=== PATIENT | female | born 1975 | race Caucasian/White ===

== ENCOUNTER 2020-07-08 15:30 | Emergency (ER) | payer SELFPAY ==
[~2020-07-08] VITALS: Ht 177.8 cm; Wt 93.9 kg
[2020-07-08] MEDS ORDERED: IBUPROFEN 600 MG TAB PO ONE (17:00)
[2020-07-08 17:07] VITALS: BP 107/69
== END 2020-07-08 17:37 | disposition home or self-care (01) ==
LOC: ER 15:30
DX: S82.52XA Displaced fracture of medial malleolus of left tibia, initial encounter for closed fracture (principal); S82.62XA Displaced fracture of lateral malleolus of left fibula, initial encounter for closed fracture; X50.1XXA Overexertion from prolonged static or awkward postures, initial encounter; Y93.89 Activity, other specified; Y92.89 Other specified places as the place of occurrence of the external cause; Y99.8 Other external cause status
CPT/HCPCS: 29515; 73610; 73630

== ENCOUNTER 2020-09-10 15:23 | Inpatient (IN) | payer MEDICAID, OTHER ==
[~2020-09-10] VITALS: Ht 177.8 cm; Wt 93.6 kg
[2020-09-10] MEDS ORDERED: DexAMETHasone SOD PHOS 10MG/1ML VIAL INJ IV ONE (15:45)
[2020-09-10] MEDS ORDERED: cefTRIAXone 1GM/50ML D5W 50 ML IV ONE (15:45)
[2020-09-10] MEDS ORDERED: MORPHINE SULF INJ 2 MG/ML SYRINGE 1ML IV PRN ×3 (18:00→22:30)
[2020-09-10] MEDS ORDERED: NITROGLYCERIN 0.4 MG SL TAB SL PRN ×2 (18:00→22:30)
[2020-09-10 18:32] LABS: Basophils # (auto) 0 10 ^3/uL (0-0.2); Basophils % (auto) 0.2 % (0.0-2.0); Eosinophils # (auto) 0 10 ^3/uL (0-0.8); Eosinophils % (auto) 0.1 % (0.0-7.0); Hematocrit 37.6 % (36.0-46.0); Hemoglobin 12.8 g/dL (12.2-16.2); Lymphocytes # (auto) 1.5 10 ^3/uL (0.4-5.4); Lymphocytes % (auto) 16.9 % (10.0-50.0); Mean Corpuscular Hgb Conc. 34.1 g/dL (32.0-36.0); Mean Corpuscular Volume 85.2 fL (80.0-100.0); Monocytes # (auto) 0.6 10 ^3/uL (0-1.3); Monocytes % (auto) 6.7 % (0.0-12.0); Neutrophils # (auto) 6.7 10 ^3/uL (1.6-8.6); Neutrophils % (auto) 76.1 % (37.0-80.0); Platelet Count (auto) 226 10^3/uL (140-450); Red Blood Cells 4.41 10^6/uL (4.0-5.20); Red Cell Distribution Width 13.9 % (11.8-14.3); White Blood Cell 8.8 10^3/uL (4.4-10.8)
[2020-09-10 18:51] LABS: Albumin 3.6 g/dL (3.4-5.0); Calcium 8.5 mg/dL (8.5-10.1)
[2020-09-10 18:53] LABS: INR 1.04 (0.9-1.15); Partial Thromboplastin Time 26.9 sec (23.0-31.2)
[2020-09-10 18:56] LABS: BUN/Creatinine Ratio 10.5; Bilirubin, Total 0.3 mg/dL (0.2-1.0); CRP High Sensitivity 0.59 mg/dL (< 0.3); Total Protein 7.8 g/dL (6.4-8.2)
[2020-09-10] MEDS ORDERED: ENOXAPARIN SOD 100 MG/1 ML SYRINGE SC ONE (19:45)
[2020-09-10] MEDS ORDERED: IOHEXOL 350 MG/ML 100ML IJ ONE (21:19)
[2020-09-10] MEDS ORDERED: ONDANSETRON HCL 4 MG/2 ML VIAL IV PRN (22:30)
[2020-09-10] MEDS ORDERED: LORazepam 0.5 MG TAB PO PRN (22:30)
[2020-09-10] MEDS ORDERED: METOPROLOL SUCCINATE XL 50 MG TAB PO ONE (22:30)
[2020-09-10] MEDS ORDERED: HYDROcodone-ACET 5/325MG TAB PO PRN (22:30)
[2020-09-10] MEDS ORDERED: DOCUSATE SOD 100 MG CAP PO PRN (22:30)
[2020-09-10] MEDS ORDERED: ALUM & MAG HYDROX-SIMETH LIQ(MAALOX) 30 ML PO PRN (22:30)
[2020-09-11 02:04] LABS: Cholesterol 205 mg/dL (< 200); HDL Cholesterol 58 mg/dL (40-59); LDL Cholesterol 122 mg/dL (< 100); Triglycerides 80 mg/dL (< 150)
[2020-09-11 06:07] LABS: Basophils # (auto) 0 10 ^3/uL (0-0.2); Basophils % (auto) 0.4 % (0.0-2.0); Eosinophils # (auto) 0 10 ^3/uL (0-0.8); Hematocrit 38.1 % (36.0-46.0); Hemoglobin 13.1 g/dL (12.2-16.2); Lymphocytes # (auto) 1.3 10 ^3/uL (0.4-5.4); Lymphocytes % (auto) 13.8 % (10.0-50.0); Mean Corpuscular Hemoglobin 29.2 pg (28.0-32.0); Mean Corpuscular Hgb Conc. 34.4 g/dL (32.0-36.0); Monocytes # (auto) 0.5 10 ^3/uL (0-1.3); Monocytes % (auto) 5.1 % (0.0-12.0); Neutrophils # (auto) 7.5 10 ^3/uL (1.6-8.6); Neutrophils % (auto) 80.7 % (37.0-80.0); Platelet Count (auto) 216 10^3/uL (140-450); Red Blood Cells 4.48 10^6/uL (4.0-5.20); Red Cell Distribution Width 14.3 % (11.8-14.3); White Blood Cell 9.3 10^3/uL (4.4-10.8)
[2020-09-11 06:25] LABS: INR 1.05 (0.9-1.15); Partial Thromboplastin Time 27.6 sec (23.0-31.2)
[2020-09-11 06:30] LABS: Potassium 4.3 mmol/L (3.5-5.1)
[2020-09-11 06:40] LABS: Albumin 3.5 g/dL (3.4-5.0); BUN/Creatinine Ratio 11.8; Bilirubin, Total 0.3 mg/dL (0.2-1.0); Calcium 8.7 mg/dL (8.5-10.1); Magnesium 2.1 mg/dL (1.6-2.6); Phosphorus 3.5 mg/dL (2.5-4.90); Total Protein 7.5 g/dL (6.4-8.2)
[2020-09-11] MEDS: METOPROLOL SUCCINATE XL 50 MG TAB PO SCH (09:41)
[2020-09-11] MEDS: ASPirin 81 mg TAB PO SCH (09:41)
[2020-09-11] MEDS ORDERED: ENOXAPARIN SOD 100 MG/1 ML SYRINGE SC SCH (10:00)
[2020-09-11] MEDS: HEPARIN DRIP/D5W 100UNITS/ML 250 ML IV SCH (17:15)
[2020-09-11 18:55] LABS: Basophils # (auto) 0 10 ^3/uL (0-0.2); Basophils % (auto) 0.3 % (0.0-2.0); Eosinophils # (auto) 0 10 ^3/uL (0-0.8); Eosinophils % (auto) 0.1 % (0.0-7.0); Hemoglobin 13.4 g/dL (12.2-16.2); Lymphocytes # (auto) 3.5 10 ^3/uL (0.4-5.4); Lymphocytes % (auto) 28.9 % (10.0-50.0); Mean Corpuscular Hemoglobin 28.6 pg (28.0-32.0); Mean Corpuscular Hgb Conc. 33.5 g/dL (32.0-36.0); Mean Corpuscular Volume 85.3 fL (80.0-100.0); Monocytes # (auto) 0.9 10 ^3/uL (0-1.3); Monocytes % (auto) 7.5 % (0.0-12.0); Neutrophils # (auto) 7.6 10 ^3/uL (1.6-8.6); Neutrophils % (auto) 63.2 % (37.0-80.0); Nucleated Red Blood Cells % 0.1 %; Platelet Count (auto) 268 10^3/uL (140-450); Red Blood Cells 4.69 10^6/uL (4.0-5.20); Red Cell Distribution Width 14.3 % (11.8-14.3)
[2020-09-11 19:12] LABS: INR 1.04 (0.9-1.15); Partial Thromboplastin Time 27.4 sec (23.0-31.2)
[2020-09-11] MEDS: ATORVASTATIN 20 MG TAB PO SCH (22:00)
[2020-09-12 01:01] LABS: INR 1.06 (0.9-1.15); Partial Thromboplastin Time 57.7 sec (23.0-31.2)
[2020-09-12 06:57] LABS: Basophils # (auto) 0.1 10 ^3/uL (0-0.2); Basophils % (auto) 0.6 % (0.0-2.0); Eosinophils # (auto) 0.1 10 ^3/uL (0-0.8); Eosinophils % (auto) 0.5 % (0.0-7.0); Hematocrit 37.5 % (36.0-46.0); Hemoglobin 12.7 g/dL (12.2-16.2); Lymphocytes % (auto) 31.5 % (10.0-50.0); Mean Corpuscular Hemoglobin 29.1 pg (28.0-32.0); Mean Corpuscular Hgb Conc. 33.9 g/dL (32.0-36.0); Mean Corpuscular Volume 85.7 fL (80.0-100.0); Monocytes # (auto) 0.7 10 ^3/uL (0-1.3); Monocytes % (auto) 7.8 % (0.0-12.0); Neutrophils # (auto) 5.6 10 ^3/uL (1.6-8.6); Neutrophils % (auto) 59.6 % (37.0-80.0); Platelet Count (auto) 230 10^3/uL (140-450); Red Blood Cells 4.37 10^6/uL (4.0-5.20); Red Cell Distribution Width 14.1 % (11.8-14.3); White Blood Cell 9.5 10^3/uL (4.4-10.8)
[2020-09-12 07:27] LABS: INR 1.03 (0.9-1.15)
[2020-09-12 07:30] LABS: Partial Thromboplastin Time 75.8 sec (23.0-31.2)
[2020-09-12] MEDS: HEPARIN DRIP/D5W 100UNITS/ML 250 ML IV SCH ×2 (08:00→13:45)
[2020-09-12] MEDS: PANTOPRAZOLE 40 MG TAB PO SCH (10:00)
[2020-09-12] MEDS: METOPROLOL SUCCINATE XL 50 MG TAB PO SCH (10:00)
[2020-09-12] MEDS: ASPirin 81 mg TAB PO SCH (10:00)
[2020-09-12 12:39] LABS: INR 1.05 (0.9-1.15)
[2020-09-12] MEDS ORDERED: ERGOCALCIFEROL 50,000 UNIT(1.25MG) CAP PO SCH (15:15)
[2020-09-12] MEDS: ATORVASTATIN 20 MG TAB PO SCH (22:00)
[2020-09-12 22:48] LABS: INR 1.03 (0.9-1.15)
[2020-09-13 04:47] LABS: INR 1.04 (0.9-1.15); Partial Thromboplastin Time 27.3 sec (23.0-31.2)
[2020-09-13] MEDS: HEPARIN DRIP/D5W 100UNITS/ML 250 ML IV SCH (05:25)
[2020-09-13] MEDS ORDERED: HEPARIN SODIUM (PORCINE) 5000 UNITS/ML 1ML VIAL ONE (06:00)
[2020-09-13] MEDS ORDERED: HEPARIN SODIUM (PORCINE) 5000 UNITS/ML 1ML VIAL IV ONE (06:15)
[2020-09-13 08:42] LABS: Basophils # (auto) 0 10 ^3/uL (0-0.2); Basophils % (auto) 0.7 % (0.0-2.0); Eosinophils # (auto) 0.2 10 ^3/uL (0-0.8); Eosinophils % (auto) 2.4 % (0.0-7.0); Hematocrit 35.8 % (36.0-46.0); Hemoglobin 12.3 g/dL (12.2-16.2); Lymphocytes # (auto) 2.3 10 ^3/uL (0.4-5.4); Lymphocytes % (auto) 35.4 % (10.0-50.0); Mean Corpuscular Hemoglobin 28.8 pg (28.0-32.0); Mean Corpuscular Hgb Conc. 34.3 g/dL (32.0-36.0); Mean Corpuscular Volume 84.1 fL (80.0-100.0); Monocytes # (auto) 0.5 10 ^3/uL (0-1.3); Monocytes % (auto) 7.1 % (0.0-12.0); Neutrophils # (auto) 3.5 10 ^3/uL (1.6-8.6); Neutrophils % (auto) 54.4 % (37.0-80.0); Platelet Count (auto) 250 10^3/uL (140-450); Red Blood Cells 4.26 10^6/uL (4.0-5.20); Red Cell Distribution Width 13.5 % (11.8-14.3); White Blood Cell 6.4 10^3/uL (4.4-10.8)
[2020-09-13 08:59] LABS: INR 1.05 (0.9-1.15)
[2020-09-13 09:01] LABS: Partial Thromboplastin Time 127.2 sec (23.0-31.2)
[2020-09-13] MEDS: PANTOPRAZOLE 40 MG TAB PO SCH (09:58)
[2020-09-13] MEDS: ASPirin 81 mg TAB PO SCH (09:58)
[2020-09-13] MEDS: METOPROLOL SUCCINATE XL 50 MG TAB PO SCH (09:59)
[2020-09-13] MEDS: CHOLECALCIFEROL (VITD3) 2,000 UNIT CAP PO SCH (09:59)
[2020-09-13] MEDS ORDERED: APIXABAN 5 MG TAB PO ONE (10:30)
[2020-09-13] MEDS: APIXABAN 5 MG TAB PO SCH ×2 (12:00→21:31)
[2020-09-13 12:41] LABS: INR 1.03 (0.9-1.15); Partial Thromboplastin Time 68.4 sec (23.0-31.2)
[2020-09-13 18:31] VITALS: BP 114/76
[2020-09-13 19:07] LABS: INR 1.02 (0.9-1.15); Partial Thromboplastin Time 26.3 sec (23.0-31.2)
[2020-09-13] MEDS: ATORVASTATIN 20 MG TAB PO SCH (21:32)
[2020-09-13 21:33] VITALS: BP 113/68
[2020-09-14 01:42] LABS: INR 1.05 (0.9-1.15); Partial Thromboplastin Time 27.2 sec (23.0-31.2)
[2020-09-14 05:39] LABS: INR 1.05 (0.9-1.15); Partial Thromboplastin Time 26.9 sec (23.0-31.2)
[2020-09-14 05:42] VITALS: BP 106/80
[2020-09-14 05:59] LABS: Calcium 8.4 mg/dL (8.5-10.1); Magnesium 2.1 mg/dL (1.6-2.6)
[2020-09-14 08:00] VITALS: BP 109/71
[2020-09-14] MEDS: PANTOPRAZOLE 40 MG TAB PO SCH (09:30)
[2020-09-14] MEDS: CHOLECALCIFEROL (VITD3) 2,000 UNIT CAP PO SCH (09:30)
[2020-09-14] MEDS: APIXABAN 5 MG TAB PO SCH (09:30)
[2020-09-14 13:08] VITALS: BP 109/71
[2020-09-14 13:08] LABS: INR 1.06 (0.9-1.15); Partial Thromboplastin Time 27.7 sec (23.0-31.2)
[2020-09-20] MEDS ORDERED: APIXABAN 5 MG TAB PO SCH (10:00)
== END 2020-09-14 14:12 | disposition home or self-care (01) | DRG 134 ==
LOC: ER 15:23 → TELE 15:24 → TELE-CENTR 09-13 17:23
PROVIDERS: ADMIT Hospitalist; ATTEND Internal Medicine
DX: I26.99 Other pulmonary embolism without acute cor pulmonale (principal); I21.A1 Myocardial infarction type 2; Z20.822 Contact with and (suspected) exposure to COVID-19; J96.01 Acute respiratory failure with hypoxia; I82.402 Acute embolism and thrombosis of unspecified deep veins of left lower extremity; E87.3 Alkalosis; F41.9 Anxiety disorder, unspecified; I27.20 Pulmonary hypertension, unspecified; E66.9 Obesity, unspecified; I25.9 Chronic ischemic heart disease, unspecified; E78.5 Hyperlipidemia, unspecified; E55.9 Vitamin D deficiency, unspecified; I82.449 Acute embolism and thrombosis of unspecified tibial vein; Z79.01 Long term (current) use of anticoagulants; Z79.899 Other long term (current) drug therapy; Z79.891 Long term (current) use of opiate analgesic; Z68.29 Body mass index [BMI] 29.0-29.9, adult
CPT/HCPCS: 36415; 36600; 71045; 71275; 80048; 80053; 80061; 82306; 82728; 82805; 83036; 83615; 83735; 83880; 84100; 84443; 84484; 84702; 85025; 85362; 85379; 85384; 85610; 85730; 86141; 87040; 87426; 93005; 93306; 93970; 96365; 96375; 99291; G0378; J0696; J1100